=== PATIENT | female | born 1950 | race African-American/Black ===

== ENCOUNTER 2018-05-06 23:23 | Emergency (ER) | payer MEDICARE ==
[~2018-05-06] VITALS: Ht 170.2 cm; Wt 68.2 kg
[2018-05-06 23:57] LABS: BASO % 0.6 % (0.0-2.0); EOS # 0.1 (0.0-0.7); EOS % 1.7 % (0-4.0); GRAN # 2.6 (1.4-6.5); GRAN % 41.6 % (42.2-75.2); HEMOGLOBIN 13.7 g/dl (12.5-16.0); LYMPH % 47.3 % (20.0-51.0); MEAN CELL VOLUME 87 fl (80.0-100.0); MEAN CORPUSCULAR HEMOGLOBIN 29 pg (27.0-31.0); MEAN CORPUSCULAR HGB CONC 33 g/dl (33.0-37.0); MEAN PLATELET VOLUME 10.2 fl (7.4-10.4); MONO # 0.5 (0.1-0.6); MONO % 8.5 % (1.7-9.3); PLATELET COUNT 271 K/mm3 (130-400); RED BLOOD COUNT 4.73 M/mm3 (4.10-5.30); REDCELL DISTRIBUTION WIDTH-CV 12.9 % (11.5-14.5)
[2018-05-07 00:07] LABS: ALANINE AMINOTRANSFERASE 31 U/L (9-52); ALBUMIN 3.9 gm/dL (3.5-5.0); ALKALINE PHOSPHATASE 89 U/L (50-136); ANION GAP 12 mmol/L (7-16); AST,SGOT 22 U/L (15-37); BILIRUBIN,TOTAL 0.4 mg/dL (0.0-1.0); BLOOD UREA NITROGEN 18 mg/dL (7-17); CALCIUM 8.8 mg/dL (8.4-10.2); CARBON DIOXIDE 24 mmol/L (22-30); CHLORIDE 104 mmol/L (98-107); CREATININE, serum 1.03 mg/dL (0.52-1.25); GLUCOSE 142 mg/dL (74-106); INR 1.1 (0.8-3.0); POTASSIUM 3.3 mmol/L (3.4-5.0); PROTHROMBIN TIME 12.6 SECONDS (9.7-12.8); SODIUM 140 mmol/L (137-145)
[2018-05-07 00:22] LABS: TROPONIN-I < 0.012 ng/mL (0.000-0.034)
[2018-05-07 02:45] VITALS: BP 124/71; PULSE 90
== END 2018-05-07 02:45 | disposition home or self-care (01) ==
LOC: COL.ER 23:23
PROVIDERS: Emergency Medicine
DX: R55 Syncope and collapse (principal); T67.5XXA Heat exhaustion, unspecified, initial encounter; E86.0 Dehydration; Z90.710 Acquired absence of both cervix and uterus; Z98.890 Other specified postprocedural states